=== PATIENT | female | born 1955 | race Two or more races ===

== ENCOUNTER 2017-12-15 06:47 | Day surgery (SDC) | payer MEDICAID ==
[~2017-12-15] VITALS: Ht 157.5 cm; Wt 77.0 kg
[~2017-12-15 06:47] MED LIST: ASPI81TA27 PO; FLUT0.05 NAS; LEVO75TA6 PO; LOSA25TA9 PO; OME20T PO; SIMV-8 PO
[2017-12-15] MEDS ORDERED: LIDOCAINE HCL 2 %PF INJ 10ML AMP IJ ONE (07:31)
[2017-12-15] MEDS ORDERED: IODIXANOL 320MG/ML 100ML BTL IV ONE (07:31)
[2017-12-15] MEDS ORDERED: ANGIOMAX 250 MG VIAL IV ONE (08:04)
[2017-12-15] MEDS ORDERED: fentaNYL CITRATE 100 MCG/2 ML VL ONE (08:04)
[2017-12-15] MEDS ORDERED: MIDAZOLAM HCL 1MG/1ML-2 ML VIAL ONE ×2 (08:05→08:37)
[2017-12-15] MEDS ORDERED: SODIUM CHL 0.9% 0 ML ONE (08:05)
[2017-12-15] MEDS ORDERED: VERAPAMIL 2.5MG/ML INJ 2ML VIAL IV ONE (08:06)
[2017-12-15] MEDS ORDERED: HEPARIN SODIUM (PORCINE) 5000 UNITS/ML 1ML VIAL ONE (08:42)
== END 2017-12-15 10:55 | disposition home or self-care (01) ==
LOC: CATH 06:47
PROVIDERS: ATTEND Internal Medicine
DX: R94.39 Abnormal result of other cardiovascular function study (principal); E66.9 Obesity, unspecified; Z68.31 Body mass index [BMI] 31.0-31.9, adult; I10 Essential (primary) hypertension; E78.5 Hyperlipidemia, unspecified; E11.9 Type 2 diabetes mellitus without complications
CPT/HCPCS: 93454; C1769; C1894; J1644; J3010; J7030; 99152; J2250; Q9967